=== PATIENT | female | born 1985 | race Caucasian/White ===

== ENCOUNTER 2021-11-05 07:17 | Emergency (ER) | payer BC ==
[~2021-11-05] VITALS: Ht 165.1 cm; Wt 81.6 kg
[2021-11-05 07:26] VITALS: BP 111/63
--- NOTE | 2021-11-05 08:04 | NUR ---
36/F PRESENTS TO ED WITH C/O VAGINAL BLEEDING SINCE THIS MORNING. PATIENT STATES SHE IS APPROXIMATELY 14 WEEKS AND WAS TOLD AT HER OB OFFICE YESTERDAY NO HEART BEAT WAS DETECTED. PATIENT REPORTS 5/10 LOWER ABDOMIAL CRAMPING, REPORTS SHE PASSED THE FETUS THIS MORNING. PATIENT IS A1, DENIES HEADACHE, DIZZINESS OR VISION CHANGES.
[2021-11-05] MEDS ORDERED: KETOROLAC 60 MG/2 ML VIAL IM ONE (08:05)
[2021-11-05] MEDS ORDERED: IBUP-2213 PO (08:10)
--- NOTE | 2021-11-05 08:35 | NUR ---
PATIENT REPORTED FEELING LIGHT HEADED. DR. PEGUERO, PATIENT OKAY TO BE D/C HOME
--- NOTE | 2021-11-05 08:37 | NUR ---
Patient discharged with v/s stable. Written and verbal after care instructions ABOUT MISCARRIAGE given and explained. Patient alert, oriented and verbalized understanding of instructions. Ambulatory with steady gait. All questions addressed prior to discharge. ID band removed. Patient advised to follow up with PMD. Rx of IBUPROFEN 600 MG given. Patient educated on indication of medication including possible reaction and side effects. Opportunity to ask questions provided and answered.
[2021-11-05] MEDS ORDERED: NACL 0.9% 1,000 ML IV ONE ×2 (09:05→10:15)
--- NOTE | 2021-11-05 09:11 | NUR ---
WHILE PATIENT WAITING IN ER LOBBY FOR RIDE, RECEIVED CALL FROM ER ADMITTING THAT PATIENT FELL AND HIT HER HEAD, UNWITNESSED BY ME BUT WITNESSED BY STAFF. PATIENT WAS ASSISTED VIA W/C BACK INTO ER BED 9. PATIENT STATED SHE WANTED TO WALK OUTSIDE FOR FRESH AIR BECAUSE SHE FELT HOT AND GOT UP TO WALK OUTSIDE AND FELL ON HER WAY. NO LOC, PATIENT DENIES HEAD OR NECK PAIN AT THIS TIME, NO SIGNS OF INJURY NOTED. DR. PEGUERO AT BEDSIDE.
--- NOTE | 2021-11-05 09:15 | NUR ---
20G IV INSERTED IN R AC, LABS DRAWN BEDSIDE AND GIVEN TO FLAVORING OIL FILTERER
[2021-11-05 10:19] LABS: BASOPHILS % (AUTO) 0.2 % (0.0-2.0); EOSINOPHILS # (AUTO) 0.1 K/uL (0-0.4); EOSINOPHILS % (AUTO) 0.8 % (0.0-4.0); HEMATOCRIT 39.1 % (36-48); LYMPHOCYTES # (AUTO) 4.5 K/uL (2.5-16.5); MEAN CORPUSCULAR HEMOGLOBIN 30 pg (27-31); MEAN CORPUSCULAR HGB CONC 33 g/dL (33-37); MEAN CORPUSCULAR VOLUME 89.7 fL (80-94); MONOCYTES # (AUTO) 0.9 K/uL (0.8-1.0); MONOCYTES % (AUTO) 5.2 % (1.7-9.3); NEUTROPHILS # (AUTO) 11.2 K/uL (1.8-7.7); NEUTROPHILS % (AUTO) 66.8 % (42.2-75.2); PLATELET COUNT (AUTO) 353 K/uL (140-450); RED BLOOD CELL COUNT(AUTO) 4.35 MIL/uL (4.20-5.40); RED CELL DISTRIBUTION WIDTH 13.1 % (11.6-13.7); WHITE BLOOD COUNT (AUTO) 16.7 K/uL (4.8-10.8)
--- NOTE | 2021-11-05 10:30 | NUR ---
PATIENT RESTING IN BED WITH EYES OPEN, STATES "I FEEL MUCH BETTER." DENIES PAIN OR DISCOMFORT AT THIS TIME, PATIENT ON BEDSIDE EXTRUSION LINE OPERATOR. WILL CONTINUE TO MONITOR.
--- NOTE | 2021-11-05 12:25 | NUR ---
IV removed, catheter intact and site benign. Applied folded 4x4 gauze and tape to stop bleeding.
[2021-11-05 12:26] VITALS: BP 90/55
--- NOTE | 2021-11-05 12:26 | NUR ---
Patient discharged with v/s stable. Written and verbal after care instructions ABOUT MISCARRIAGE given and explained. Patient verbalized understanding. Wheel Chair Assisted with to car. All questions addressed prior to discharge. Advised to follow up with PMD.
== END 2021-11-05 12:26 | disposition home or self-care (01) ==
LOC: MED 07:17
DX: O03.9 Complete or unspecified spontaneous abortion without complication (principal)
CPT/HCPCS: 36415; 85025; 96360; 96361; 96372; 99285; J1885; J7030